=== PATIENT | female | born 1940 | race Caucasian/White ===

== ENCOUNTER → 2016-08-30 | Outpatient (CLI) | payer MEDICARE ==
[~2016-08-30] MED LIST: CALC500T42 PO; CENTTAB16 PO; COMMODE 3:1; DONE5TAB14 PO; LEVE500 PO; LORA.5 PO; NAME5TAB2 PO; RANI150T PO; VITA200017 PO; VITA500T83 PO; WALKER ROLLING; WHEELCHAIR RENTAL RA
[2016-08-30 13:48] LABS: AUTOMATED NEUTROPHIL # 4.3 TH/MM3 (1.8-7.7); BASOPHIL # 0.1 TH/MM3 (0-0.2); BASOPHIL % 1.1 % (0.0-2.0); EOSINOPHIL # 0.2 TH/MM3 (0-0.4); EOSINOPHIL % 2.9 % (0.0-4.0); HEMATOCRIT 36.1 % (35.0-46.0); HEMO FLAGS DIFF FINAL; LYMPH % 29.8 % (9.0-44.0); LYMPHOCYTE # 2.2 TH/MM3 (1.0-4.8); MEAN CELL VOLUME 95.1 FL (80.0-100.0); MEAN CORPUSCULAR HEMOGLOBIN 31.3 PG (27.0-34.0); MONO % 8.2 % (0.0-8.0); PLATELET COUNT 231 TH/MM3 (150-450); RED BLOOD COUNT 3.79 MIL/MM3 (4.00-5.30); RED CELL DISTRIBUTION WIDTH 13.2 % (11.6-17.2); WHITE BLOOD COUNT 7.4 TH/MM3 (4.0-11.0)
[2016-08-30 14:21] LABS: ALKALINE PHOSPHATASE 92 U/L (45-117); ALT (GPT) 15 U/L (10-53); ANION GAP 6 MEQ/L (5-15); AST (GOT) 18 U/L (15-37); BICARBONATE 30.5 MEQ/L (21.0-32.0); BLOOD UREA NITROGEN 11 MG/DL (7-18); CHLORIDE 106 MEQ/L (98-107); GLOMERULAR FILTRATION RATE 58 ML/MIN (>89); GLUCOSE,FASTING 93 MG/DL (74-99); HDL CHOLESTEROL 99.5 MG/DL (40.0-60.0); LDL CHOLESTEROL 78 MG/DL (0-99); POTASSIUM 3.8 MEQ/L (3.5-5.1); SODIUM (NA) 142 MEQ/L (136-145); TOTAL BILIRUBIN ADULT 0.5 MG/DL (0.2-1.0)
[2016-08-30 17:06] LABS: HEMOGLOBIN A1a 1.1 %; HEMOGLOBIN A1b 0.8 %; HEMOGLOBIN Ao 86.7 %; HEMOGLOBIN F 1.1 %; HEMOGLOBIN LA1C 1.8 %; HEMOGLOBIN P3 3.4 %
[2016-09-01 12:26] LABS: ESTRADIOL <10 pg/mL (())
[2016-09-03 11:54] LABS: PROGESTERONE LESS THAN 0.1 ng/mL (())
== END ==
LOC: CLAB 13:20
PROVIDERS: ATTEND Family Medicine
DX: I10 Essential (primary) hypertension (principal); E10.8 Type 1 diabetes mellitus with unspecified complications; E78.2 Mixed hyperlipidemia; E03.8 Other specified hypothyroidism; E55.9 Vitamin D deficiency, unspecified; E23.1 Drug-induced hypopituitarism; R61 Generalized hyperhidrosis; Z79.899 Other long term (current) drug therapy
CPT/HCPCS: 36415; 80053; 80061; 82306; 82670; 82679; 83036; 84144; 84439; 84443; 85025

== ENCOUNTER → 2016-09-06 | Outpatient (CLI) | payer MEDICARE ==
[2016-09-08 10:35] LABS: ESTRADIOL <10 pg/mL (())
[2016-09-10 18:36] LABS: PROGESTERONE LESS THAN 0.1 ng/mL (())
== END ==
LOC: CLAB 10:33
PROVIDERS: ATTEND Family Medicine
DX: G47.00 Insomnia, unspecified (principal); Z79.899 Other long term (current) drug therapy
CPT/HCPCS: 36415; 82670; 82679; 84144; 84403

== ENCOUNTER → 2016-10-11 | Outpatient (CLI) | payer MEDICARE ==
[2016-10-11 10:51] LABS: HEMATOCRIT 37.7 % (35.0-46.0); MEAN CELL VOLUME 94.6 FL (80.0-100.0); MEAN CORPUSCULAR HEMOGLOBIN 30.6 PG (27.0-34.0); MEAN CORPUSCULAR HGB CONC 32.3 % (32.0-36.0); PLATELET COUNT 258 TH/MM3 (150-450); RED BLOOD COUNT 3.98 MIL/MM3 (4.00-5.30); RED CELL DISTRIBUTION WIDTH 13.3 % (11.6-17.2); REVIEW FLAG FINAL; WHITE BLOOD COUNT 7.2 TH/MM3 (4.0-11.0)
[2016-10-11 11:04] LABS: ALT (GPT) 18 U/L (10-53); ANION GAP 7 MEQ/L (5-15); AST (GOT) 18 U/L (15-37); BICARBONATE 28.8 MEQ/L (21.0-32.0); BLOOD UREA NITROGEN 9 MG/DL (7-18); CHLORIDE 107 MEQ/L (98-107); GLOMERULAR FILTRATION RATE 68 ML/MIN (>89); GLUCOSE,FASTING 83 MG/DL (74-99); POTASSIUM 3.9 MEQ/L (3.5-5.1); SODIUM (NA) 143 MEQ/L (136-145)
[2016-10-11 11:14] LABS: ALKALINE PHOSPHATASE 98 U/L (45-117); LDL CHOLESTEROL 108 MG/DL (0-99); TOTAL BILIRUBIN ADULT 0.4 MG/DL (0.2-1.0)
== END ==
LOC: CLAB 10:29
PROVIDERS: ATTEND Family Medicine
DX: F03.90 Unspecified dementia, unspecified severity, without behavioral disturbance, psychotic disturbance, mood disturbance, and anxiety (principal); E78.5 Hyperlipidemia, unspecified; K21.9 Gastro-esophageal reflux disease without esophagitis; K58.9 Irritable bowel syndrome, unspecified; G47.00 Insomnia, unspecified; C53.0 Malignant neoplasm of endocervix
CPT/HCPCS: 36415; 80053; 80061; 84443; 85027

== ENCOUNTER → 2017-02-07 | Outpatient (CLI) | payer MEDICARE ==
[2017-02-07 11:03] LABS: AUTOMATED NEUTROPHIL # 3.7 TH/MM3 (1.8-7.7); BASOPHIL # 0.1 TH/MM3 (0-0.2); BASOPHIL % 0.9 % (0.0-2.0); EOSINOPHIL # 0.2 TH/MM3 (0-0.4); EOSINOPHIL % 3.3 % (0.0-4.0); HEMATOCRIT 36.4 % (35.0-46.0); HEMO FLAGS DIFF FINAL; LYMPH % 26.6 % (9.0-44.0); LYMPHOCYTE # 1.6 TH/MM3 (1.0-4.8); MEAN CELL VOLUME 95.8 FL (80.0-100.0); MEAN CORPUSCULAR HEMOGLOBIN 31.6 PG (27.0-34.0); MONO % 6.9 % (0.0-8.0); NEUT % 62.3 % (16.0-70.0); PLATELET COUNT 231 TH/MM3 (150-450); RED CELL DISTRIBUTION WIDTH 13.1 % (11.6-17.2); WHITE BLOOD COUNT 5.9 TH/MM3 (4.0-11.0)
[2017-02-07 11:26] LABS: ANION GAP 6 MEQ/L (5-15); AST (GOT) 17 U/L (15-37); BICARBONATE 29.3 MEQ/L (21.0-32.0); BLOOD UREA NITROGEN 17 MG/DL (7-18); CHLORIDE 105 MEQ/L (98-107); GLOMERULAR FILTRATION RATE 70 ML/MIN (>89); GLUCOSE,FASTING 81 MG/DL (74-99); SODIUM (NA) 140 MEQ/L (136-145)
[2017-02-07 11:38] LABS: ALKALINE PHOSPHATASE 84 U/L (45-117); ALT (GPT) 14 U/L (10-53); HDL CHOLESTEROL 87.1 MG/DL (40.0-60.0); LDL CHOLESTEROL 107 MG/DL (0-99); THYROXINE (T4) 11.4 MCG/DL (4.8-13.9); TOTAL BILIRUBIN ADULT 0.5 MG/DL (0.2-1.0)
== END ==
LOC: CLAB 10:26
PROVIDERS: ATTEND Family Medicine
DX: E78.2 Mixed hyperlipidemia (principal); I48.0 Paroxysmal atrial fibrillation; J44.0 Chronic obstructive pulmonary disease with (acute) lower respiratory infection; Z79.899 Other long term (current) drug therapy
CPT/HCPCS: 36415; 80053; 80061; 84134; 84436; 84443; 84480; 85025

== ENCOUNTER → 2017-07-04 | Outpatient (CLI) | payer MEDICARE ==
[2017-07-04 11:43] LABS: HEMATOCRIT 35.5 % (35.0-46.0); MEAN CELL VOLUME 94.7 FL (80.0-100.0); MEAN CORPUSCULAR HEMOGLOBIN 31.5 PG (27.0-34.0); MEAN CORPUSCULAR HGB CONC 33.3 % (32.0-36.0); PLATELET COUNT 219 TH/MM3 (150-450); RED BLOOD COUNT 3.75 MIL/MM3 (4.00-5.30); RED CELL DISTRIBUTION WIDTH 12.9 % (11.6-17.2); REVIEW FLAG FINAL; WHITE BLOOD COUNT 6.5 TH/MM3 (4.0-11.0)
[2017-07-04 12:09] LABS: ALT (GPT) 17 U/L (10-53)
[2017-07-04 12:19] LABS: ALKALINE PHOSPHATASE 109 U/L (45-117); HDL CHOLESTEROL 89.5 MG/DL (40.0-60.0); LDL CHOLESTEROL 88 MG/DL (0-99); TOTAL BILIRUBIN ADULT 0.2 MG/DL (0.2-1.0)
[2017-07-04 12:26] LABS: ANION GAP 6 MEQ/L (5-15); AST (GOT) 24 U/L (15-37); BICARBONATE 27.8 MEQ/L (21.0-32.0); BLOOD UREA NITROGEN 8 MG/DL (7-18); CHLORIDE 109 MEQ/L (98-107); GLOMERULAR FILTRATION RATE 65 ML/MIN (>89); GLUCOSE,FASTING 87 MG/DL (74-99); POTASSIUM 3.8 MEQ/L (3.5-5.1); SODIUM (NA) 143 MEQ/L (136-145)
== END ==
LOC: CLAB 11:23
PROVIDERS: ATTEND Family Medicine
DX: E78.5 Hyperlipidemia, unspecified (principal); F03.90 Unspecified dementia, unspecified severity, without behavioral disturbance, psychotic disturbance, mood disturbance, and anxiety; K21.9 Gastro-esophageal reflux disease without esophagitis; C53.0 Malignant neoplasm of endocervix; K58.9 Irritable bowel syndrome, unspecified; G47.00 Insomnia, unspecified
CPT/HCPCS: 36415; 80053; 80061; 84443; 85027

== ENCOUNTER → 2017-10-19 | Outpatient (CLI) | payer MEDICARE ==
[~2017-10-19] MED LIST changes: +CALC1TAB12 PO; +DONE5TAB7 PO; +LORA0.5T PO; +MULT1TAB61 PO; +PLAV75TA29 PO; +VITA2000 PO
[2017-10-19 12:31] LABS: BASOPHIL # 0.1 TH/MM3 (0-0.2); BASOPHIL % 0.6 % (0.0-2.0); EOSINOPHIL # 0.1 TH/MM3 (0-0.4); EOSINOPHIL % 1.3 % (0.0-4.0); HEMATOCRIT 37.6 % (35.0-46.0); HEMOGLOBIN 12.5 GM/DL (11.6-15.3); LYMPH % 17.7 % (9.0-44.0); LYMPHOCYTE # 1.4 TH/MM3 (1.0-4.8); MEAN CELL VOLUME 92.8 FL (80.0-100.0); MEAN CORPUSCULAR HEMOGLOBIN 30.9 PG (27.0-34.0); MEAN CORPUSCULAR HGB CONC 33.3 % (32.0-36.0); MEAN PLATELET VOLUME 7.6 FL (7.0-11.0); MONO % 7.3 % (0.0-8.0); MONOCYTE # 0.6 TH/MM3 (0-0.9); NEUT % 73.1 % (16.0-70.0); PLATELET COUNT 236 TH/MM3 (150-450); RED BLOOD COUNT 4.05 MIL/MM3 (4.00-5.30); RED CELL DISTRIBUTION WIDTH 14.9 % (11.6-17.2); WHITE BLOOD COUNT 8.2 TH/MM3 (4.0-11.0)
[2017-10-19 12:39] LABS: PROTHROMBIN TIME - PATIENT 10.4 SEC (9.8-11.6)
[2017-10-19 13:01] LABS: ALBUMIN 3.7 GM/DL (3.4-5.0); ALT (GPT) 118 U/L (10-53); AST (GOT) 413 U/L (15-37); BICARBONATE 28.4 MEQ/L (21.0-32.0); BLOOD UREA NITROGEN 11 MG/DL (7-18); CALCIUM 9.2 MG/DL (8.5-10.1); CHLORIDE 106 MEQ/L (98-107); CREATININE 0.88 MG/DL (0.50-1.00); GLOMERULAR FILTRATION RATE 62 ML/MIN (>89); GLUCOSE,FASTING 82 MG/DL (74-99); SODIUM (NA) 141 MEQ/L (136-145)
[2017-10-19 13:04] LABS: ALKALINE PHOSPHATASE 167 U/L (45-117); TOTAL BILIRUBIN ADULT 0.8 MG/DL (0.2-1.0); TOTAL PROTEIN 7.5 GM/DL (6.4-8.2)
--- NOTE | 2017-10-19 13:46 | RADRPT ---
EXAM DATE/TIME: 10/19/2017 13:09 [place] COMPARISON: CT THORAX W CONTRAST, December 30, 2015, 17:43. INDICATIONS : Evaluate for pneumonia, pneumothorax or communicable disease. Pre op colposcopy. MEDICAL HISTORY : Chronic obstructive pulmonary disease. SURGICAL HISTORY : None. ENCOUNTER: Initial ACUITY: 1 day PAIN SCORE: 0/10 LOCATION: Bilateral chest FINDINGS: PA and lateral views of the chest demonstrate the lungs to be symmetrically hyperaerated without evid ence of mass, infiltrate or effusion. The cardiomediastinal contours are unremarkable. Mild symmetr ic elevation of the posterior hemidiaphragms, stable from lateral insulation worker image of CT scan in 2016. Os seous structures are intact. CONCLUSION: The lungs are hyperaerated, but clear. Geoffrey Ballard MD on October 19, 2017 at 13:43 Board Certified Radiologist. This report was verified electronically.
--- NOTE | 2017-10-20 14:02 | EKG ---
Date Performed: 10/19/2017 Time Performed: 12:11:27 PTAGE: 77 years EKG: Sinus rhythm RIGHT BUNDLE BRANCH BLOCK ABNORMAL ECG Since the PREVIOUS TRACING , no significant change noted PREVIOUS TRACIN12/30/2015 17.24 DOCTOR: Deann Ca Interpretating Date/Time 10/20/2017 13:59:48
== END ==
LOC: CPRE 11:28
PROVIDERS: ATTEND Obstetrics & Gynecology Gynecologic Oncology
DX: Z01.812 Encounter for preprocedural laboratory examination (principal); Z01.811 Encounter for preprocedural respiratory examination; Z01.810 Encounter for preprocedural cardiovascular examination; R87.613 High grade squamous intraepithelial lesion on cytologic smear of cervix (HGSIL); Z79.01 Long term (current) use of anticoagulants; I45.10 Unspecified right bundle-branch block
CPT/HCPCS: 36415; 71046; 80053; 85025; 85610; 85730; 93005

== ENCOUNTER → 2017-10-21 | Outpatient (CLI) | payer MEDICARE ==
[~2017-10-21] MED LIST changes: -CALC500T42 PO; -CENTTAB16 PO; -COMMODE 3:1; -DONE5TAB14 PO; -LORA.5 PO; -VITA200017 PO; -WALKER ROLLING; -WHEELCHAIR RENTAL RA
[2017-10-24 11:47] LABS: ALBUMIN 3.9 GM/DL (3.4-5.0); DIRECT BILIRUBIN ADULT 0.1 MG/DL (0.0-0.2)
[2017-10-24 11:49] LABS: INDIRECT BILIRUBIN 0.3 MG/DL (0.0-0.8); TOTAL BILIRUBIN ADULT 0.4 MG/DL (0.2-1.0); TOTAL PROTEIN 6.9 GM/DL (6.4-8.2)
== END ==
LOC: CLAB 14:37
PROVIDERS: ATTEND Family Medicine
DX: R74.8 Abnormal levels of other serum enzymes (principal)
CPT/HCPCS: 36415; 80074; 80076

== ENCOUNTER → 2017-10-31 | Outpatient (CLI) | payer MEDICARE ==
[2017-10-31 12:05] LABS: ALBUMIN 3.3 GM/DL (3.4-5.0); DIRECT BILIRUBIN ADULT 0.1 MG/DL (0.0-0.2)
[2017-10-31 12:08] LABS: INDIRECT BILIRUBIN 0.3 MG/DL (0.0-0.8); TOTAL BILIRUBIN ADULT 0.4 MG/DL (0.2-1.0); TOTAL PROTEIN 7.5 GM/DL (6.4-8.2)
== END ==
LOC: CLAB 11:18
PROVIDERS: ATTEND Family Medicine
DX: R94.5 Abnormal results of liver function studies (principal)
CPT/HCPCS: 36415; 80076

== ENCOUNTER → 2017-11-29 | Day surgery (SDC) | payer MEDICARE ==
[~2017-11-29] VITALS: Ht 165.1 cm; Wt 53.1 kg
[~2017-11-29] MED LIST changes: +DEXAMETHASONE SOD PHOS 4 MG/ML VIAL IV ONE; +DO NOT ADM ANY ANTICOAGULANT DRUGS PRN; +GLYCOPYRROLATE 1 MG/5 ML SYRINGE IV PUSH ONE; +KETOROLAC TROMETHAMINE 30 MG/ML (IVP) VIAL IV PUSH PRN; +KETOROLAC TROMETHAMINE 30 MG/ML (IVP) VIAL ONE; +LIDOCAINE 1%/EPINEPHrine 1:100,000 SOLN 20 ML VIAL ONE; +LIDOCAINE HCL 1% PF 5 ML SYRINGE OTHER ONE; +ONDANSETRON HCL 4 MG/2 ML VIAL IV ONE; +PROPOFOL 200 MG/20 ML AMP IV ONE; +oxyCODONE/ACETAMINOPHEN 5 MG/325 MG TAB PO PRN
--- NOTE | 2017-11-29 15:02 | MP ---
cc: Iman Peralta MD, Roxy MD Foust,Joann Fernandez MD DATE OF OPERATION: 11/29/2017 DATE OF SURGERY: 11/29/2017 PREOPERATIVE DIAGNOSES: 1. 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 2. Status post prior hysterectomy, bilateral salpingo-oophorectomy for cervix dysplasia. POSTOPERATIVE DIAGNOSES: 1. 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 2. Status post prior hysterectomy, bilateral salpingo-oophorectomy for cervix dysplasia. 3. Diffuse atrophic changes to the vaginal mucosa. PROCEDURE: Examination under anesthesia, colposcopy, wide local excision of the anterior mid-vagina and perineum. Biopsies of the right and left vaginal apex. Biopsy of the posterior mid-vagina. SURGEON: Iman Peralta MD VOICE NETWORK ADMINISTRATOR: Keanu credit assistant. ANESTHESIA: General anesthesia. 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 However, recent Pap smear was interpreted as high grade dysplasia of the vaginal mucosa. She was counseled regarding options, and we agreed upon examination under anesthesia, colposcopy and biopsies and wide local excision depending on findings. She was seen again in the preop holding area where history is reviewed, recommendations are again made. Questions were asked and answered. She expressed good understanding and agreed to move forward with surgery. FINDINGS: On exam under anesthesia, there was no appreciable enlarged inguinal lymph nodes. External genitalia notable for some sebaceous cyst or prior hidradenitis with no acute infection or inflammation. Dilute acetic acid was applied to all vaginal and vulvar surfaces. Colposcopy was performed. There was diffuse mucosal thinning throughout. There was some thinning across the suture line from the prior vaginal hysterectomy and it is difficult to tell what might represent dysplasia versus profound postmenopausal changes. There were, however, more pronounced acetowhite epithelial changes in the anterior mid-vagina across the vaginal cuff and focal areas in the posterior mid-vagina. Additionally, there is a fairly well demarcated area of acetowhite epithelium on the perineum. PROCEDURE: She is taken to the operating room and placed in dorsal lithotomy position. After general endotracheal anesthesia was administered, timeout was undertaken. She was identified by site recognition, hospital ID bracelet and the proposed procedure was reviewed and confirmed. She was carefully placed in lithotomy position. Exam under anesthesia was performed. Dilute acetic acid was applied and colposcopy was performed with the findings as described above. She was prepped and draped in sterile fashion. In-and-out catheterization of the bladder was performed. Sterile marker was used to outline the area in the anterior vagina for wide local excision. Lidocaine, epinephrine was injected using a scalpel. Superficial incision was made and the mucosa was removed. It was fragmented because it was quite thin, and then the mucosa was reapproximated and reinforced with 3-0 Vicryl suture. The mucosa was grasped at the right vaginal apex and left vaginal apex at the corners. Lidocaine, epinephrine was injected. Sharp dissection was used to remove the superficial mucosa as biopsy and from each of these corners a [id number] 3-0 Vicryl suture was used to render them hemostatic. Whereas there was some acetowhite epithelial changes across the vaginal cuff, there appeared to be profound thinning of that mucosa and it was thought to quite possibly represent atrophic changes and the tissue was so thin that biopsies were not performed. In the distal posterior vagina there was a slightly raised firm area. This was excised, rendered hemostatic with 3-0 Vicryl suture and labeled as posterior mid-vagina. Elliptical marker was used to outline the area on the perineum that appeared abnormal. Lidocaine, epinephrine injected. Sharp dissection was used to remove the perineum and this was reapproximated and rendered hemostatic with interrupted 3-0 Vicryl sutures. The vagina was irrigated and inspection confirmed there were no remaining foreign objects in the vagina. Preliminary and final counts were correct. She was returned to dorsal supine position and was pending reversal of anesthesia when I left the operating room to precede her to the postanesthesia care unit. MD JESUS Schilling/CL , 02:13 PM , 03:01 PM
[2017-11-29 15:30] VITALS: BP 118/65; PULSE 62; RESP 18; TEMP 98.1; O2SAT 98
== END | disposition home or self-care (01) ==
LOC: HSDC 11:03
PROVIDERS: ATTEND Obstetrics & Gynecology Gynecologic Oncology
DX: N89.3 Dysplasia of vagina, unspecified (principal); Z90.710 Acquired absence of both cervix and uterus; J44.9 Chronic obstructive pulmonary disease, unspecified; I10 Essential (primary) hypertension; M81.0 Age-related osteoporosis without current pathological fracture; I31.9 Disease of pericardium, unspecified; Z86.73 Personal history of transient ischemic attack (TIA), and cerebral infarction without residual deficits
CPT/HCPCS: 00940; 57421; 86850; 86900; 86901; 88305; J1100; J1885; J2405; J3010